=== PATIENT | male | born 1930 | race Caucasian/White ===

== ENCOUNTER 2016-08-07 12:38 | Inpatient (IN) | payer OTHER ==
[~2016-08-07] VITALS: Ht 162.6 cm; Wt 72.8 kg
[~2016-08-07 12:38] MED LIST: ADULT LOW DOSE81 M1 PO; ALBUTEROL SULF8.5 GM IH; ALDACTONE25 MG PO; ALPRAZOLAM0.25 MG PO; ASPIR 8181 M1 PO; ASPIR-LOW81 M1 PO; ASPIR-LOW81 MG PO; Aldactone PO; BAYER CHILDREN'81 MG PO; BLOOD PRESSURE1 EA11; CHOLESTEROL MED; COLESTID1 GM PO; COLESTIPOL HCL1 GM PO; COREG6.25 M1 PO; COUMADIN1 MG PO; COZAAR25 MG PO; ENDOCET 5-3251 EACH PO; FLOVENT DISKUS1 DIS2 IH; HYDROCHLOROTH12.5 M1 PO; LASIX40 MG PO; LOPRESSOR50 MG PO; LOSARTAN POTASS25 MG PO; Lasix PO; Lopressor PO; METOPROLOL SUCC25 MG PO; NIACIN1000 MG PO; NIASPAN1000 MG PO; NITROSTAT0.3 MG SL; Niaspan,Slo-Niacin PO; OXYCODONE HCL5 MG PO; PLAVIX75 MG PO; PRAVASTATIN SOD40 MG PO; PRILOSEC20 MG PO; PROAIR HFA8.5 GM IH; PROTONIX40 M1 PO; PROTONIX40 MG PO; PROVENTIL,200 INHALA IH; Plavix PO; SLO-NIACIN750 MG PO; SPIRONOLACTONE25 MG PO; TAMIFLU75 MG PO; TYLENOL REGULA325 MG PO; Xanax PO; ZESTRIL,PRINIV2.5 MG PO; Zestril,Prinivil PO
[2016-08-07 13:18] LABS: HEMATOCRIT 40.2 % (38.0-50.0); MCH 30.6 PG (29.0-34.0); MCHC 35.6 G/DL (30.0-36.0); MCV 86.1 FL (86-99); MEAN PLAT.VOLUME 9.2 uM^3 (9.0-12.4); PLATELET COUNT 138 K/uL (156-360); RBC DIS.WIDTH-CV 12.7 % (11.8-14.6); RBC DIS.WIDTH-SD 39.1 % (39-53); RED BLOOD COUNT 4.67 M/uL (4.00-5.50)
[2016-08-07 13:32] LABS: CHLORIDE 103 mEq/L (99-109); POTASSIUM 4.3 mEq/L (3.7-5.4); SODIUM 133 mEq/L (136-147)
[2016-08-07 13:33] LABS: TROP-I INTERPRETATION NEGATIVE; TROPONIN-I 0.02 ng/mL (0.0-0.30)
[2016-08-07 13:34] LABS: GLUCOSE 118 mg/dL (70-99)
[2016-08-07 13:35] LABS: ANION GAP 9 MEQ/L (2-14)
[2016-08-07 13:37] LABS: GFR ESTIMATE (CALCULATED) > 59 mL/min/
[2016-08-07 13:38] LABS: UREA NITROGEN (BUN) 27 mg/dL (9-23)
[2016-08-07] MEDS ORDERED: ZOCOR20 MG PO (15:05)
[2016-08-07] MEDS ORDERED: LO-DOSE ASPIRIN81 M1 PO (15:05)
[2016-08-07] MEDS ORDERED: SINGULAIR10 MG PO (15:06)
[2016-08-07 17:08] VITALS: BP 126/69
[2016-08-07 19:13] LABS: INFLUENZA A VIRAL ANTIGEN NEGATIVE; INFLUENZA B VIRAL ANTIGEN NEGATIVE
[2016-08-07 19:33] VITALS: BP 126/69
[2016-08-08 00:06] VITALS: BP 129/67
[2016-08-08 04:33] VITALS: BP 138/62
[2016-08-08 07:52] VITALS: BP 134/69
[2016-08-08 09:18] LABS: BASE EXCESS 0.9 mEq/L (-3 to +3); BICARBONATE 24.2 mEq/L (22-26); CARBOXY HGB 2.2 % (0-5); COMMENTS - BLOOD GASES A+C+; DEVICE NC; METHEMOGLOBIN 1.4 % (0-1.5); O2 FLOW 2 L/MIN; PCO2 34 mm Hg (35-45); PO2 73 mm Hg (80-100); SITE LR; TOTAL RESP RATE 18 resp/min; pH 7.46 (7.35-7.45)
[2016-08-08 11:46] VITALS: BP 98/56
[2016-08-08 15:42] VITALS: BP 123/59
[2016-08-08 20:10] VITALS: BP 112/65
[2016-08-09 00:43] VITALS: BP 137/73
[2016-08-09 04:20] VITALS: BP 125/72
[2016-08-09 07:31] VITALS: BP 132/70
[2016-08-09 09:30] LABS: HEMATOCRIT 38.6 % (38.0-50.0); MCH 30.3 PG (29.0-34.0); MCV 86.7 FL (86-99); MEAN PLAT.VOLUME 9.7 uM^3 (9.0-12.4); PLATELET COUNT 150 K/uL (156-360); RBC DIS.WIDTH-CV 12.8 % (11.8-14.6); RBC DIS.WIDTH-SD 41.1 % (39-53); RED BLOOD COUNT 4.45 M/uL (4.00-5.50)
[2016-08-09 09:34] LABS: WHITE BLOOD COUNT 16.3 K/uL (4.1-10.2)
[2016-08-09 09:43] LABS: ANION GAP 9 MEQ/L (2-14); CHLORIDE 97 MEQ/L (99-109); GFR ESTIMATE (CALCULATED) > 59 mL/min/; GLUCOSE 115 mg/dL (70-99); POTASSIUM 4.1 MEQ/L (3.7-5.4); SAMPLE HEMOLYSIS CHECK 0; SAMPLE ICTERIC CHECK 0; SAMPLE LIPEMIA CHECK 0; SODIUM 129 MEQ/L (136-147); UREA NITROGEN (BUN) 31 mg/dL (9-23)
[2016-08-09 11:41] VITALS: BP 139/63
[2016-08-09 15:24] VITALS: BP 168/75
[2016-08-09 20:00] VITALS: BP 110/59
[2016-08-10] VITALS: BP 113/67
[2016-08-10 05:14] VITALS: BP 109/65
[2016-08-10 08:20] VITALS: BP 128/70
[2016-08-10 09:58] LABS: HEMATOCRIT 40.5 % (38.0-50.0); MCH 29.9 PG (29.0-34.0); MCHC 34.1 G/DL (30.0-36.0); MCV 87.9 FL (86-99); MEAN PLAT.VOLUME 9.2 uM^3 (9.0-12.4); PLATELET COUNT 162 K/uL (156-360); RBC DIS.WIDTH-CV 13.1 % (11.8-14.6); RBC DIS.WIDTH-SD 42.2 % (39-53); RED BLOOD COUNT 4.61 M/uL (4.00-5.50); WHITE BLOOD COUNT 16.3 K/uL (4.1-10.2)
[2016-08-10 10:23] LABS: ANION GAP 9 MEQ/L (2-14); CHLORIDE 104 MEQ/L (99-109); GFR ESTIMATE (CALCULATED) > 59 mL/min/; GLUCOSE 153 mg/dL (70-99); POTASSIUM 4.4 MEQ/L (3.7-5.4); SAMPLE HEMOLYSIS CHECK 0; SAMPLE ICTERIC CHECK 0; SAMPLE LIPEMIA CHECK 0; SODIUM 134 MEQ/L (136-147); UREA NITROGEN (BUN) 32 mg/dL (9-23)
[2016-08-10 12:32] VITALS: BP 126/60; BP 151/76
[2016-08-10 15:24] VITALS: BP 114/67
[2016-08-10 20:17] VITALS: BP 118/67
[2016-08-11 00:25] VITALS: BP 141/68
[2016-08-11 04:19] VITALS: BP 133/65
[2016-08-11 07:52] VITALS: BP 90/56
[2016-08-11 11:52] VITALS: BP 129/70
[2016-08-11] MEDS ORDERED: PREDNISONE10 MG PO (15:03)
[2016-08-11] MEDS ORDERED: MUCINEX D ER T1 EACH PO (15:03)
[2016-08-11] MEDS ORDERED: LEVOFLOXACIN750 MG PO (15:03)
[2016-08-11 15:56] VITALS: BP 128/60
== END 2016-08-11 16:32 | disposition home or self-care (01) | DRG 192 ==
LOC: EME 12:38 → EDOF 14:45 → 5SOUTH 14:45
PROVIDERS: Emergency Medicine; Physician Assistant
DX: J44.1 Chronic obstructive pulmonary disease with (acute) exacerbation (principal); D69.6 Thrombocytopenia, unspecified; I10 Essential (primary) hypertension; I25.10 Atherosclerotic heart disease of native coronary artery without angina pectoris; Z95.5 Presence of coronary angioplasty implant and graft; Z87.891 Personal history of nicotine dependence; R06.89 Other abnormalities of breathing; J20.9 Acute bronchitis, unspecified; J44.0 Chronic obstructive pulmonary disease with (acute) lower respiratory infection; K21.9 Gastro-esophageal reflux disease without esophagitis; E86.0 Dehydration
CPT/HCPCS: 36600; 71020; 80048; 82803; 84484; 85027; 87070; 87205; 87502; 93005; 94640; 94640 76; 94667; 94668; 94799; 99202; 99281; 99284; J1644; J2920; J2930; J7030; J7512

== ENCOUNTER 2016-08-19 14:56 | Inpatient (IN) | payer OTHER ==
[~2016-08-19] VITALS: Ht 160 cm; Wt 57.8 kg
[~2016-08-19 14:56] MED LIST changes: +LEVOFLOXACIN750 MG PO; +LO-DOSE ASPIRIN81 M1 PO; +MUCINEX D ER T1 EACH PO; +PREDNISONE10 MG PO; +SINGULAIR10 MG PO; +ZOCOR20 MG PO
[2016-08-19 15:25] LABS: MCH 30.5 PG (29.0-34.0); MCHC 36.1 G/DL (30.0-36.0); MCV 84.6 FL (86-99); MEAN PLAT.VOLUME 8.7 uM^3 (9.0-12.4); PLATELET COUNT 183 K/uL (156-360); RBC DIS.WIDTH-CV 13.1 % (11.8-14.6); RBC DIS.WIDTH-SD 39.2 % (39-53); RED BLOOD COUNT 4.49 M/uL (4.00-5.50); WHITE BLOOD COUNT 18.9 K/uL (4.1-10.2)
[2016-08-19 16:02] LABS: ANION GAP 6 MEQ/L (2-14); CHLORIDE 90 MEQ/L (99-109); POTASSIUM 4.9 MEQ/L (3.7-5.4); SAMPLE HEMOLYSIS CHECK 0; SAMPLE ICTERIC CHECK 0; SAMPLE LIPEMIA CHECK 0; SODIUM 122 MEQ/L (136-147)
[2016-08-19 16:08] LABS: GFR ESTIMATE (CALCULATED) > 59 mL/min/; GLUCOSE 107 mg/dL (70-99); TROP-I INTERPRETATION NEGATIVE; TROPONIN-I 0.03 ng/mL (0.0-0.30); UREA NITROGEN (BUN) 27 mg/dL (9-23)
[2016-08-19] MEDS ORDERED: SYMBICORT60 INHALAT IH (18:02)
[2016-08-19] MEDS ORDERED: ZANTAC75 M1 PO (18:02)
[2016-08-19] MEDS ORDERED: COMBIVENT RESPIM4 GM IH (18:03)
[2016-08-19 20:17] VITALS: BP 134/67
[2016-08-19 23:05] VITALS: BP 139/68
[2016-08-20 05:25] VITALS: BP 111/61
[2016-08-20 06:16] LABS: HEMATOCRIT 37.2 % (38.0-50.0); MCH 30.5 PG (29.0-34.0); MCV 84.7 FL (86-99); MEAN PLAT.VOLUME 9.5 uM^3 (9.0-12.4); PLATELET COUNT 166 K/uL (156-360); RBC DIS.WIDTH-CV 13.5 % (11.8-14.6); RBC DIS.WIDTH-SD 40.4 % (39-53); RED BLOOD COUNT 4.39 M/uL (4.00-5.50); WHITE BLOOD COUNT 14.6 K/uL (4.1-10.2)
[2016-08-20 06:34] LABS: POINT-OF-CARE METER ID UU13113725
[2016-08-20 06:41] LABS: ANION GAP 3 MEQ/L (2-14); CHLORIDE 92 MEQ/L (99-109); GFR ESTIMATE (CALCULATED) > 59 mL/min/; GLUCOSE 77 mg/dL (70-99); POTASSIUM 4.5 MEQ/L (3.7-5.4); SAMPLE HEMOLYSIS CHECK 0; SAMPLE ICTERIC CHECK 0; SAMPLE LIPEMIA CHECK 0; SODIUM 122 MEQ/L (136-147); UREA NITROGEN (BUN) 28 mg/dL (9-23)
[2016-08-20 08:41] VITALS: BP 142/63
[2016-08-20 11:28] LABS: POINT-OF-CARE METER ID UU13113717
[2016-08-20 16:09] LABS: URIC ACID 4.1 mg/dL (3.1-9.2)
[2016-08-20 16:19] VITALS: BP 111/58
[2016-08-20 19:44] VITALS: BP 116/59
[2016-08-20 19:53] LABS: ANION GAP 6 MEQ/L (2-14); CHLORIDE 91 MEQ/L (99-109); GFR ESTIMATE (CALCULATED) > 59 mL/min/; POTASSIUM 4.7 MEQ/L (3.7-5.4); SAMPLE HEMOLYSIS CHECK 0; SAMPLE ICTERIC CHECK 0; SAMPLE LIPEMIA CHECK 0; SODIUM 123 MEQ/L (136-147); UREA NITROGEN (BUN) 32 mg/dL (9-23)
[2016-08-20 19:54] LABS: GLUCOSE 146 mg/dL (70-99)
[2016-08-20 21:19] LABS: UR CALCIUM CONCENTRATION < 5.0 MG/DL
[2016-08-20 23:37] VITALS: BP 101/52
[2016-08-21 03:20] VITALS: BP 110/58
[2016-08-21 04:33] LABS: HEMATOCRIT 34.6 % (38.0-50.0); MCH 30.5 PG (29.0-34.0); MCHC 35.8 G/DL (30.0-36.0); MEAN PLAT.VOLUME 8.8 uM^3 (9.0-12.4); PLATELET COUNT 159 K/uL (156-360); RBC DIS.WIDTH-CV 13.2 % (11.8-14.6); RBC DIS.WIDTH-SD 39.9 % (39-53); RED BLOOD COUNT 4.07 M/uL (4.00-5.50); WHITE BLOOD COUNT 17.3 K/uL (4.1-10.2)
[2016-08-21 04:46] LABS: CHLORIDE 93 mEq/L (99-109); POTASSIUM 4.7 mEq/L (3.7-5.4); SODIUM 124 mEq/L (136-147)
[2016-08-21 04:49] LABS: ANION GAP 5 MEQ/L (2-14); GLUCOSE 93 mg/dL (70-99)
[2016-08-21 04:51] LABS: GFR ESTIMATE (CALCULATED) > 59 mL/min/
[2016-08-21 04:52] LABS: UREA NITROGEN (BUN) 30 mg/dL (9-23)
[2016-08-21 04:54] LABS: URIC ACID 4.2 mg/dL (3.1-9.2)
[2016-08-21 07:29] VITALS: BP 113/58
[2016-08-21 15:21] VITALS: BP 115/58
[2016-08-21 17:01] LABS: ANION GAP 5 MEQ/L (2-14); CHLORIDE 92 MEQ/L (99-109); GFR ESTIMATE (CALCULATED) > 59 mL/min/; GLUCOSE 116 mg/dL (70-99); POTASSIUM 4.8 MEQ/L (3.7-5.4); SAMPLE HEMOLYSIS CHECK 0; SAMPLE ICTERIC CHECK 0; SAMPLE LIPEMIA CHECK 0; SODIUM 124 MEQ/L (136-147); UREA NITROGEN (BUN) 29 mg/dL (9-23)
[2016-08-21 19:40] VITALS: BP 126/62
[2016-08-21 23:37] VITALS: BP 116/58
[2016-08-22 03:13] VITALS: BP 119/58
[2016-08-22 07:23] LABS: HEMATOCRIT 34.3 % (38.0-50.0); MCH 30.6 PG (29.0-34.0); MCHC 35.3 G/DL (30.0-36.0); MCV 86.6 FL (86-99); MEAN PLAT.VOLUME 9.5 uM^3 (9.0-12.4); PLATELET COUNT 140 K/uL (156-360); RBC DIS.WIDTH-CV 13.4 % (11.8-14.6); RBC DIS.WIDTH-SD 42.2 % (39-53); RED BLOOD COUNT 3.96 M/uL (4.00-5.50)
[2016-08-22 07:24] LABS: WHITE BLOOD COUNT 8.3 K/uL (4.1-10.2)
[2016-08-22 07:45] LABS: ANION GAP 6 MEQ/L (2-14); CHLORIDE 95 MEQ/L (99-109); GFR ESTIMATE (CALCULATED) > 59 mL/min/; GLUCOSE 87 mg/dL (70-99); POTASSIUM 4.4 MEQ/L (3.7-5.4); SAMPLE HEMOLYSIS CHECK 0; SAMPLE ICTERIC CHECK 0; SAMPLE LIPEMIA CHECK 0; SODIUM 128 MEQ/L (136-147); UREA NITROGEN (BUN) 27 mg/dL (9-23)
[2016-08-22 08:34] VITALS: BP 116/56
[2016-08-22 11:24] VITALS: BP 138/62
[2016-08-22 16:16] VITALS: BP 127/59
[2016-08-22 19:55] VITALS: BP 144/63
[2016-08-23] VITALS (7 sets, daily range): BP systolic 89–142; BP diastolic 48–65
[2016-08-23 04:45] LABS: CHLORIDE 102 mEq/L (99-109); SODIUM 127 mEq/L (136-147)
[2016-08-23 04:47] LABS: GLUCOSE 93 mg/dL (70-99)
[2016-08-23 04:48] LABS: ANION GAP 8 MEQ/L (2-14)
[2016-08-23 04:51] LABS: GFR ESTIMATE (CALCULATED) > 59 mL/min/
[2016-08-23 04:52] LABS: UREA NITROGEN (BUN) 28 mg/dL (9-23)
[2016-08-23 17:55] LABS: URIC ACID 3.9 mg/dL (3.1-9.2)
[2016-08-24 03:11] VITALS: BP 139/65
[2016-08-24 06:35] LABS: ANION GAP 7 MEQ/L (2-14); CHLORIDE 100 MEQ/L (99-109); GFR ESTIMATE (CALCULATED) > 59 mL/min/; GLUCOSE 81 mg/dL (70-99); POTASSIUM 4.2 MEQ/L (3.7-5.4); SAMPLE HEMOLYSIS CHECK 0; SAMPLE ICTERIC CHECK 0; SAMPLE LIPEMIA CHECK 0; SODIUM 133 MEQ/L (136-147); UREA NITROGEN (BUN) 27 mg/dL (9-23)
[2016-08-24 07:15] VITALS: BP 119/55
[2016-08-24 15:00] VITALS: BP 107/51
[2016-08-24 19:10] VITALS: BP 138/61
[2016-08-24 22:57] VITALS: BP 129/60
[2016-08-25 03:05] VITALS: BP 130/57
[2016-08-25 06:12] LABS: ANION GAP 8 MEQ/L (2-14); CHLORIDE 98 MEQ/L (99-109); GFR ESTIMATE (CALCULATED) > 59 mL/min/; GLUCOSE 90 mg/dL (70-99); POTASSIUM 4.1 MEQ/L (3.7-5.4); SAMPLE HEMOLYSIS CHECK 0; SAMPLE ICTERIC CHECK 0; SAMPLE LIPEMIA CHECK 0; SODIUM 134 MEQ/L (136-147); UREA NITROGEN (BUN) 28 mg/dL (9-23)
[2016-08-25 08:04] VITALS: BP 152/64
[2016-08-25 16:58] VITALS: BP 109/51
[2016-08-25 19:05] VITALS: BP 111/56
[2016-08-25 22:44] VITALS: BP 126/63
[2016-08-26 05:20] LABS: HEMATOCRIT 36.8 % (38.0-50.0); MCH 29.8 PG (29.0-34.0); MCHC 33.7 G/DL (30.0-36.0); MCV 88.5 FL (86-99); MEAN PLAT.VOLUME 9.3 uM^3 (9.0-12.4); PLATELET COUNT 158 K/uL (156-360); RBC DIS.WIDTH-CV 13.8 % (11.8-14.6); RBC DIS.WIDTH-SD 43.9 % (39-53); RED BLOOD COUNT 4.16 M/uL (4.00-5.50); WHITE BLOOD COUNT 7.9 K/uL (4.1-10.2)
[2016-08-26 05:52] LABS: ANION GAP 7 MEQ/L (2-14); CHLORIDE 100 MEQ/L (99-109); GFR ESTIMATE (CALCULATED) > 59 mL/min/; GLUCOSE 86 mg/dL (70-99); MAGNESIUM 2.1 mg/dl (1.3-2.7); POTASSIUM 4.6 MEQ/L (3.7-5.4); SAMPLE HEMOLYSIS CHECK 0; SAMPLE ICTERIC CHECK 0; SAMPLE LIPEMIA CHECK 0; SODIUM 135 MEQ/L (136-147); UREA NITROGEN (BUN) 27 mg/dL (9-23)
[2016-08-26 05:53] LABS: ANION GAP 7 MEQ/L (2-14); CHLORIDE 100 MEQ/L (99-109); GFR ESTIMATE (CALCULATED) > 59 mL/min/; GLUCOSE 84 mg/dL (70-99); POTASSIUM 4.6 MEQ/L (3.7-5.4); SAMPLE HEMOLYSIS CHECK 0; SAMPLE ICTERIC CHECK 0; SAMPLE LIPEMIA CHECK 0; SODIUM 135 MEQ/L (136-147); UREA NITROGEN (BUN) 27 mg/dL (9-23)
[2016-08-26 08:00] VITALS: BP 134/58
[2016-08-26] MEDS ORDERED: PREVACID SOLUTA30 MG PO (13:44)
[2016-08-26] MEDS ORDERED: Magic Mouthwash Garg MM (13:44)
[2016-08-26] MEDS ORDERED: FLUCONAZOLE100 MG PO (13:44)
[2016-08-26] MEDS ORDERED: MAG-AL PLUS SUS30 ML PO (13:44)
[2016-08-26] MEDS ORDERED: TRIPLE ANTIB28.35 GM TP (13:44)
[2016-08-26 16:00] VITALS: BP 113/64
[2016-08-26 23:04] VITALS: BP 117/57
[2016-08-27 07:58] VITALS: BP 142/67
[2016-08-27] MEDS ORDERED: LASIX20 MG PO (13:36)
== END 2016-08-27 13:55 | disposition home health service (06) | DRG 158 ==
LOC: EME 14:56 → EDOF 17:48 → 5EAST 17:48
PROVIDERS: Hospitalist; Internal Medicine; Internal Medicine Nephrology
DX: B37.0 Candidal stomatitis (principal); E22.2 Syndrome of inappropriate secretion of antidiuretic hormone; B37.81 Candidal esophagitis; T38.0X5A Adverse effect of glucocorticoids and synthetic analogues, initial encounter; T17.908A Unspecified foreign body in respiratory tract, part unspecified causing other injury, initial encounter; J44.9 Chronic obstructive pulmonary disease, unspecified; E86.0 Dehydration; R60.0 Localized edema; I25.5 Ischemic cardiomyopathy; I10 Essential (primary) hypertension; L01.00 Impetigo, unspecified; I25.10 Atherosclerotic heart disease of native coronary artery without angina pectoris; E78.5 Hyperlipidemia, unspecified; I65.23 Occlusion and stenosis of bilateral carotid arteries; K21.9 Gastro-esophageal reflux disease without esophagitis; Z87.891 Personal history of nicotine dependence; Z95.1 Presence of aortocoronary bypass graft; Z95.2 Presence of prosthetic heart valve; Z79.82 Long term (current) use of aspirin
CPT/HCPCS: 71020; 74230; 80048; 80048 91; 80069; 82040; 82948; 83735; 83880; 83935; 84300; 84484; 84550; 85027; 92526 GN; 92610 GN; 92611 GN; 93005; 94640; 94640 76; 94760; 94799; 97530 GO; 99202; 99281; 99285; C9113; J1650; J1940; J7030; J7512

== ENCOUNTER → 2016-09-13 | Outpatient (CLI) | payer OTHER ==
[~2016-09-13] MED LIST changes: +COMBIVENT RESPIM4 GM IH; +FLUCONAZOLE100 MG PO; +LASIX20 MG PO; +MAG-AL PLUS SUS30 ML PO; +Magic Mouthwash Garg MM; +PREVACID SOLUTA30 MG PO; +SYMBICORT60 INHALAT IH; +TRIPLE ANTIB28.35 GM TP; +ZANTAC75 M1 PO
== END | disposition home or self-care (01) ==
DX: R13.10 Dysphagia, unspecified (principal)
CPT/HCPCS: 92611 GN; G8996 GN; G8997 GN; G8998 GN

== ENCOUNTER 2017-10-31 08:37 | Day surgery (SDC) | payer OTHER ==
[~2017-10-31] VITALS: Ht 154.9 cm; Wt 59.0 kg
[~2017-10-31 08:37] MED LIST changes: +PREVACID30 MG PO
[2017-10-31 10:00] VITALS: BP 176/75
[2017-10-31 13:40] VITALS: BP 177/76
[2017-10-31 14:15] VITALS: BP 182/77
== END 2017-10-31 14:25 | disposition home or self-care (01) ==
LOC: SDC 08:37
DX: H44.001 Unspecified purulent endophthalmitis, right eye (principal); H43.11 Vitreous hemorrhage, right eye; H43.391 Other vitreous opacities, right eye; I10 Essential (primary) hypertension; E78.2 Mixed hyperlipidemia; I42.0 Dilated cardiomyopathy; I25.5 Ischemic cardiomyopathy; I25.10 Atherosclerotic heart disease of native coronary artery without angina pectoris; I65.29 Occlusion and stenosis of unspecified carotid artery; K21.9 Gastro-esophageal reflux disease without esophagitis; J43.9 Emphysema, unspecified; I25.2 Old myocardial infarction; Z95.1 Presence of aortocoronary bypass graft; Z87.891 Personal history of nicotine dependence; Z79.82 Long term (current) use of aspirin
CPT/HCPCS: J0690; J0713; J1100; J3300